=== PATIENT | female | born 1990 | race Caucasian/White ===

== ENCOUNTER 2017-03-22 17:41 | Emergency (ER) | payer SELFPAY ==
[~2017-03-22] VITALS: Ht 154.9 cm; Wt 70.8 kg
[2017-03-22 18:54] LABS: urine erythrocyte NEGATIVE (NEGATIVE)
[2017-03-22 19:36] LABS: microscopic required? YES
[2017-03-22 19:41] VITALS: BP 110/76
== END 2017-03-22 19:41 | disposition home or self-care (01) ==
LOC: ED 17:41
PROVIDERS: Emergency Medicine
DX: R51 Headache (principal); R11.10 Vomiting, unspecified; J45.909 Unspecified asthma, uncomplicated; Z79.3 Long term (current) use of hormonal contraceptives
CPT/HCPCS: J1200; J1885; J2765; J7030